=== PATIENT | female | born 1985 | race Caucasian/White ===

== ENCOUNTER 2017-03-19 19:40 | Outpatient (CLI) | payer OTHER ==
[~2017-03-19] VITALS: Ht 160 cm; Wt 72.5 kg
[~2017-03-19 19:40] MED LIST: CLARITIN10 M3 PO; ENDOCET 5-3251 EACH PO; IBUPROFEN800 MG PO; OMEPRAZOLE40 M1 PO; PRENATABS FA T1 EACH PO; UNISOM SLEEP AI25 MG PO
[2017-03-19 20:08] VITALS: BP 113/73
[2017-03-19 21:06] VITALS: BP 103/64
[2017-03-19 22:37] VITALS: BP 116/65
[2017-03-20] MEDS ORDERED: IBUPROFEN800 MG PO (18:13)
== END 2017-03-19 23:35 | disposition home or self-care (01) ==
LOC: LDRP-OP 19:40 → 2WEST 19:41 → LDRP-OP 04-14 11:17
DX: O47.1 False labor at or after 37 completed weeks of gestation (principal); Z3A.40 40 weeks gestation of pregnancy
CPT/HCPCS: 59025; 90686; G0378

== ENCOUNTER 2017-03-20 06:30 | Inpatient (IN) | payer OTHER ==
[~2017-03-20] VITALS: Ht 160 cm; Wt 72.7 kg
[2017-03-20] VITALS (18 sets, daily range): BP systolic 113–136; BP diastolic 57–81
[2017-03-20 07:46] LABS: EOSINOPHIL (%) 1.2 % (0-5); EOSINOPHIL COUNT 0.2 K/uL (0-0.3); HEMATOCRIT 39.2 % (36.0-46.0); IMMATURE GRANULOCYTE (%) 0.4 % (0.0-0.7); IMMATURE GRANULOCYTE COUNT 0.1 K/uL; INSTRUMENT ABS NEUTROPHIL CT 11.3 K/uL; LYMPHOCYTE COUNT 0.8 K/uL (1.0-2.8); MCH 31.1 PG (29.0-34.0); MCHC 33.7 G/DL (30.0-36.0); MCV 92.5 FL (83-99); MEAN PLAT.VOLUME 11.4 uM^3 (9.5-12.4); MONOCYTE (%) 9.3 % (3-12); MONOCYTE COUNT 1.3 K/uL (0-0.8); NEUTROPHIL (%) 83.4 % (45-76); NEUTROPHIL COUNT 11.3 K/uL (1.8-6.4); PLATELET COUNT 174 K/uL (156-360); RBC DIS.WIDTH-CV 13.3 % (11.8-14.6); RBC DIS.WIDTH-SD 44.5 % (39-53); RED BLOOD COUNT 4.24 M/uL (3.80-5.20); WHITE BLOOD COUNT 13.6 K/uL (4.1-10.2)
[2017-03-20] MEDS ORDERED: IBUPROFEN800 MG PO (18:13)
[2017-03-21 07:30] VITALS: BP 126/58
[2017-03-21 14:43] VITALS: BP 127/75
[2017-03-21 22:17] VITALS: BP 122/80
[2017-03-22 07:11] VITALS: BP 111/75
== END 2017-03-22 13:10 | disposition home or self-care (01) | DRG 775 ==
LOC: LDRP-OP 06:30 → 2WEST 06:31 → LDRP-OP 04-14 23:50
PROVIDERS: Midwife
PROC: 3E0S3CZ (ICD-10-PCS; principal; 2017-03-20)
PROC: 10E0XZZ Delivery of Products of Conception, External Approach (ICD-10-PCS; principal; 2017-03-20)
PROC: 10907ZC Drainage of Amniotic Fluid, Therapeutic from Products of Conception, Via Natural or Artificial Opening (ICD-10-PCS; principal; 2017-03-20)
PROC: 00HU33Z Insertion of Infusion Device into Spinal Canal, Percutaneous Approach (ICD-10-PCS; principal; 2017-03-20)
DX: O69.81X0 Labor and delivery complicated by cord around neck, without compression, not applicable or unspecified (principal); Z3A.40 40 weeks gestation of pregnancy; Z37.0 Single live birth
CPT/HCPCS: 85025; C1755; J3010; J7120